=== PATIENT | female | born 1980 | race Caucasian/White ===

== ENCOUNTER 2016-03-24 15:35 | Emergency (ER) | payer SELFPAY ==
[~2016-03-24] VITALS: Ht 167.6 cm; Wt 61.2 kg
[2016-03-24 15:35] VITALS: BP 140/83; PULSE 77; RESP 18; TEMP 97.2; O2SAT 100
--- NOTE | 2016-03-24 15:50 | NUR ---
Patient to ER bed 2 to w for evaluation by Praveen MENDOSA. Side rails up. Report given to me.
[2016-03-24] MEDS ORDERED: HYDROmorphone 1 MG INJ. 1 MG/ML AMPUL IVP ONE (16:00)
[2016-03-24] MEDS ORDERED: NS 1000 ML BAG IV ONE (16:00)
[2016-03-24] MEDS ORDERED: ONDANSETRON HCL 4 MG/2 ML VIAL IVP ONE (16:00)
--- NOTE | 2016-03-24 16:05 | NUR ---
Patient presents to the emrgency department with complaints of pelvic pain 11/20 with n/v and light vaginal bleeding when she wipes, pt is not wearing a pad upon arrival. Patient states she had a reverse tubal ligation procedure completes at 5am this morning. Pt also states she was sent home with tylenol with codeine but she did not take any of it. will continue to monitor
--- NOTE | 2016-03-24 16:10 | NUR ---
ER at bedside examining patient.
[2016-03-24] MEDS ORDERED: METOCLOPRAMIDE HCL 10 MG/2 ML VIAL IVP ONE (16:15)
[2016-03-24] MEDS ORDERED: DEXAMETHASONE SOD PHOSPHATE 10 MG/ML VIAL IVP ONE (16:15)
[2016-03-24 16:21] LABS: MEAN CORPUSCULAR VOLUME 92 fL (79.0-98.0)
[2016-03-24 16:23] LABS: HEMATOCRIT 37.8 % (36-48); HEMOGLOBIN 13.3 g/dL (12.0-16.0); MEAN CORPUSCULAR HEMOGLOBIN 32 pg (27-31); MEAN CORPUSCULAR HGB CONC 35 % (32-36); PLATELET COUNT (AUTO) 239 K/uL (130-430); RED CELL DISTRIBUTION WIDTH 11.7 % (9.0-15.0); WHITE BLOOD COUNT (AUTO) 12.6 K/uL (4.8-10.8)
[2016-03-24 16:26] LABS: CALCIUM 7.6 mg/dL (8.4-11.0); CREATININE 0.55 mg/dL (0.55-1.30); POTASSIUM 3.9 mmol/L (3.5-5.1)
[2016-03-24 16:29] LABS: ALBUMIN 3.8 g/dL (3.4-4.8); TOTAL BILIRUBIN 0.9 mg/dL (0.0-1.0); TOTAL PROTEIN, SERUM 6.9 g/dL (6.4-8.3)
[2016-03-24 16:36] LABS: BAND % (MANUAL) 5 % (0-6); BASOPHILS % (MANUAL) 0 % (0-2); EOSINOPHILS % (MANUAL) 0 % (0-7); LYMPHOCYTES % (MANUAL) 10 % (20-46); MONOCYTES % (MANUAL) 3 % (0-11)
--- NOTE | 2016-03-24 16:46 | NUR ---
dr hartley reassessing pt
--- NOTE | 2016-03-24 17:28 | NUR ---
Patient noted to be sleeping, easily arousable to light touch, states pain 0/10, and is no longer nausea. will continue to monitor
[2016-03-24 19:15] VITALS: BP 109/76; PULSE 71; RESP 18; TEMP 97.2; O2SAT 100
--- NOTE | 2016-03-24 19:15 | NUR ---
Patient given written and verbal discharge instructions and verbalizes understanding. ER MD discussed with patient the results and treatment provided. Patient in stable condition. ID arm band removed. IV catheter removed intact and dressing applied, no active bleeding. Rx of zofran given. Patient educated on pain management and to follow up with PMD. Pain Scale 0/10. Opportunity for questions provided and answered.
== END 2016-03-24 19:15 | disposition home or self-care (01) ==
LOC: SED 15:35
DX: G89.18 Other acute postprocedural pain (principal); R03.0 Elevated blood-pressure reading, without diagnosis of hypertension; Z88.0 Allergy status to penicillin; Z98.890 Other specified postprocedural states
CPT/HCPCS: 36415; 80053; 83605; 85007; 85027; 87040; 93005; 96361; 96374; 96375; 99285; J1100; J1170; J2405; J2765; J7030